=== PATIENT | female | born 1990 | race African-American/Black ===

== ENCOUNTER 2020-04-28 23:23 | Emergency (ER) | payer OTHER ==
[~2020-04-28] VITALS: Ht 162.6 cm; Wt 72.6 kg
[2020-04-28] MEDS ORDERED: ALEVE220 M1 (23:30)
[2020-04-29] MEDS ORDERED: CYCLOBENZAPRINE5 MG PO (01:50)
[2020-04-29] MEDS ORDERED: MOBIC15 MG PO (01:50)
[2020-04-29 02:00] VITALS: BP 132/68
== END 2020-04-29 02:04 | disposition home or self-care (01) ==
LOC: ER 23:23
DX: S20.219A Contusion of unspecified front wall of thorax, initial encounter (principal); S39.012A Strain of muscle, fascia and tendon of lower back, initial encounter; S29.012A Strain of muscle and tendon of back wall of thorax, initial encounter; Z88.8 Allergy status to other drugs, medicaments and biological substances; Z79.899 Other long term (current) drug therapy; V49.49XA Driver injured in collision with other motor vehicles in traffic accident, initial encounter; Y93.89 Activity, other specified; Y92.89 Other specified places as the place of occurrence of the external cause; Y99.8 Other external cause status

== ENCOUNTER 2020-07-23 11:54 | Emergency (ER) | payer BC, OTHER ==
[~2020-07-23] VITALS: Ht 160 cm; Wt 63.5 kg
[~2020-07-23 11:54] MED LIST: ALEVE220 M1; CYCLOBENZAPRINE5 MG PO; MOBIC15 MG PO
[2020-07-23 12:12] LABS: URINE BLOOD NEGATIVE (Negative); URINE CLARITY SL CLOUDY; URINE COLOR YELLOW; URINE GLUCOSE-RANDOM* NEGATIVE (Negative); URINE KETONES 2+ (Negative); URINE NITRITE-REFLEX NEGATIVE (Negative); URINE PROTEIN (DIPSTICK) 1+ (Negative); URINE SPECIFIC GRAVITY 1.025 (1.005-1.035)
[2020-07-23 12:14] LABS: ICTOTEST (BILI CONFIRMATORY) Negative (Negative); URINE BILIRUBIN NEGATIVE (Negative); URINE LEUKOCYTES-REFLEX 1+ (Negative)
[2020-07-23 12:27] LABS: SQUAMOUS >10 Many /LPF (0-3)
[2020-07-23 12:28] LABS: BACTERIA-REFLEX 1-9 Few /HPF (None Seen); CASTS None Seen /LPF (None Seen); CRYSTALS None Seen /LPF (None Seen); URINE RBC None Seen /HPF (0-2)
[2020-07-23 12:51] LABS: ABSOLUTE NEUTROPHILS 9.9 thou/uL (1.4-8.2); BASOPHILS 0.3 % (0.0-2.0); HEMATOCRIT 39.7 % (37.0-47.0); HEMOGLOBIN 12.8 gm/dL (12.0-15.0); LYMPHOCYTES 12.4 % (24.0-44.0); MCH 27.6 pg (26.0-34.0); MCHC 32.2 g/dL (28.0-37.0); MCV 85.8 fL (80.0-100.0); MONOCYTES 5.5 % (1.0-8.0); PLATELET COUNT 220 thou/uL (150-400); POLYS 81.8 % (36.0-66.0); RBC 4.62 mil/uL (4.20-5.00); WBC 12.1 thou/uL (4.0-11.0)
[2020-07-23 13:02] LABS: CREATININE 1.2 mg/dL (0.6-1.0); POTASSIUM 3.2 mmol/L (3.5-5.1)
[2020-07-23 13:08] LABS: ALBUMIN 3.5 g/dL (3.4-5.0); DIRECT BILIRUBIN 0.3 mg/dL (<0.1-0.2); TOTAL BILIRUBIN 1.4 mg/dL (0.2-1.0)
[2020-07-23] MEDS ORDERED: ONDANSETRON HCL4 M2 PO (14:24)
[2020-07-23] MEDS ORDERED: FLAGYL500 M1 PO (14:24)
[2020-07-23] MEDS ORDERED: MELOXICAM15 MG PO (14:24)
[2020-07-23] MEDS ORDERED: KEFLEX500 M1 PO (14:24)
[2020-07-23 14:30] VITALS: BP 102/67
== END 2020-07-23 14:45 | disposition home or self-care (01) ==
LOC: ER 11:54
PROVIDERS: Emergency Medicine; Nurse Practitioner
DX: N39.0 Urinary tract infection, site not specified (principal); R11.0 Nausea; A59.01 Trichomonal vulvovaginitis; Z88.8 Allergy status to other drugs, medicaments and biological substances